=== PATIENT | female | born 1960 | race Two or more races ===

== ENCOUNTER 2018-12-10 16:13 | Emergency (ER) | payer OTHER ==
[~2018-12-10] VITALS: Ht 149.9 cm; Wt 90.3 kg
[2018-12-10] MEDS ORDERED: SYNTHROID88 MCG (16:28)
[2018-12-10] MEDS ORDERED: GABAPENTIN600 MG (16:29)
[2018-12-10] MEDS ORDERED: AMITRIPTYLINE H25 MG (16:29)
== END 2018-12-10 20:01 | disposition home or self-care (01) ==
LOC: ER 16:13
DX: M54.89 Other dorsalgia (principal)